=== PATIENT | female | born 1965 ===

== ENCOUNTER 2018-03-18 08:36 | Outpatient (CLI) | payer MEDICAID | END 2018-03-18 08:37 | disposition home or self-care (01) | LOC: C.MAMMO 08:37 ==

== ENCOUNTER 2018-06-04 20:55 | Emergency (ER) | payer MEDICAID ==
[2018-06-04 20:55] VITALS: BMI 35.2
[2018-06-04 22:24] LABS: BASO # 0.1 K/uL (0.0-0.2); BASO % 0.7 % (0.0-2.0); EOS % 0.5 % (0.0-4.0); HEMOGLOBIN 14.6 g/dL (11.0-16.0); LYMPH # 2.9 K/uL (1.0-4.3); LYMPH % 26.4 % (20.0-40.0); MEAN CELL VOLUME 88.7 fL (81.0-99.0); MEAN CORPUSCULAR HGB CONC 33.8 g/dL (33.0-37.0); MEAN PLATELET VOLUME 9.6 fL (7.2-11.7); MONO # 0.9 K/uL (0.0-0.8); MONO % 8.4 % (0.0-10.0); NEUT # 6.9 K/uL (1.8-7.0); RBC 4.87 Mil/uL (3.80-5.20); RED CELL DISTRIBUTION WIDTH 13.5 % (11.5-14.5); WHITE BLOOD COUNT 10.8 K/uL (4.8-10.8)
--- NOTE | 2018-06-04 22:30 | C.PDOC ---
History Of Present Illness 52 yr old F w/ pmhx anxiety, arthritis, HTN, CKD p/w abdominal pain, headache and nausea/ vomiting. 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 No sudden onset headache or neck pain or fever. No fall or trauma. x1 vomiting episode yesterday, non bloody non dark. No neck stiffness or rashes. No abdominal trauma. Pt notes abdominal pain after vomiting but also noted RLQ abdominal pain. No back pain or chest pain. Pt did not take any medicine for the pain. Pt also notes dizziness described as room spinning when she moves her head. Not constant. Able to walk without issue otherwise. No constipation or diarrhea. No dark or bloody stool. No other complaints. Chief Complaint (Nursing): Abdominal Pain Past Medical History Vital Signs: Last Vital Signs Temp 99.2 F 06/04/18 21:47 Pulse 120 H 06/04/18 21:47 Resp 24 06/04/18 21:47 BP 137/86 06/04/18 21:47 Pulse Ox 100 06/04/18 21:47 - Medical History PMH: Anxiety, Arthritis, Back Problems, HTN, Chronic Kidney Disease, Chronic Pain Surgical History: Cholecystectomy - [facility] Procedures RETROGRADE PYELOGRAM (10/13/12) Family History: States: Unknown Family Hx - Social History Hx Tobacco Use: No Hx Alcohol Use: No Hx Substance Use: No - Immunization History Hx Tetanus Toxoid Vaccination: No Hx Influenza Vaccination: No Hx Pneumococcal Vaccination: No Review Of Systems Constitutional: Negative for: Fever, Chills, Sweats, Weakness, Malaise, Weight loss Eyes: Negative for: Pain, Vision Change, Conjunctivae Inflammation, Eyelid Inflammation, Redness, Other ENT: Negative for: Ear Pain, Ear Discharge, Nose Pain, Nose Discharge, Nose Congestion, Mouth Pain, Mouth Swelling, Throat Swelling Cardiovascular: Negative for: Chest Pain, Palpitations, Edema, Light Headedness Respiratory: Negative for: Cough, Shortness of Breath, SOB with Excertion, Pleuritic Pain, Wheezing Gastrointestinal: Positive for: Nausea, Vomiting, Abdominal Pain. Negative for: Diarrhea, Constipation, Melena, Hematochezia, Hematemesis Genitourinary: Negative for: Dysuria, Frequency, Incontinence, Hematuria, Vaginal Discharge, Vaginal Bleeding Musculoskeletal: Negative for: Neck Pain, Shoulder Pain, Back Pain, Hand Pain Skin: Negative for: Rash, Lesions Neurological: Positive for: Headache, Dizziness. Negative for: Weakness, Numbness, Incoordination, Change in Speech, Confusion, Seizures, Altered Mental Status Psych: Negative for: Anxiety, Depression, Suicidal ideation Physical Exam - Physical Exam Appears: Well, Non-toxic, No Acute Distress Skin: Normal Color, Warm Head: Atraumatic, Normacephalic, No Tenderness, No Swelling, No Abrasion, No Laceration Eye(s): bilateral: Normal Inspection, PERRL, EOMI Ear(s): Bilateral: Normal Nose: Normal, No Flaring, No Discharge Oral Mucosa: Moist Tongue: Normal Appearing Lips: Normal Appearing Teeth: Normal Dentition Gingiva: Normal Appearing Throat: Normal, No Erythema, No Exudate Neck: Normal, Normal ROM, No Midline Cervical Tenderness, No Paracervical Tenderness, Supple, Other (no meningeal signs) Lymphatic: Normal Exam, No Adenopathy Chest: Symmetrical, No Deformity, No Tenderness Cardiovascular: Rhythm Regular, No Edema, No Friction Rub, No Murmur, No JVD Respiratory: Normal Breath Sounds, No Decreased Breath Sounds, No Rales, No Rhonchi Gastrointestinal/Abdominal: Normal Exam, Soft, No Tenderness, No Organomegaly, No Mass, No Distention, No Guarding Back: Normal Inspection, No CVA Tenderness, No Vertebral Tenderness Extremity: Normal ROM, No Tenderness, No Swelling Neurological/Psych: Oriented x3, Normal Speech, Normal Cognition, Normal Cranial Nerves, No Cerebellar Signs, Normal Motor, Normal Sensation Gait: Steady Extremity: Right: No Drift, Left: No Drift ED Course And Treatment - Laboratory Results Result Diagrams: 06/04/18 22:18 06/05/18 00:46 O2 Sat by Pulse Oximetry: 100 Medical Decision Making Medical Decision Makin yr old F p/w headache, dizziness described as vertigo. MURILLO is not worst of life or sudden in onset. No FND. No fall or trauma. Normal neuro exam. No cerebellar signs. EKG 88, NSR, No stemi 1505 labs, imaging largely unremarkable pt notes MURILLO improved, now fully resolved No FND No cerebellar signs clear for d/c home with return indications and followup. Endorsed pt to followup w/ Neuro, PMD and GI doc. Pt is agreeable. Disposition - Disposition Referrals: Darrion Marmolejo MD [Staff Provider] - Antonio Finn MD [Staff Provider] - [facility] [Outside] [facility] [Outside] [facility] [Outside] Disposition: HOME/ ROUTINE Disposition Time: 02:50 Condition: STABLE Additional Instructions: MAURILIO KWON, thank you for letting us take care of you today. Your provider was Merlin Soria and you were treated for VOMITING/HEADACHE/DIZZINESS. The emergency medical care you received today was directed at your acute symptoms. If you were prescribed any medication, please fill it and take as directed. It may take several days for your symptoms to resolve. Return to the Emergency Department if your symptoms worsen, do not improve, or if you have any other problems. Please contact your doctor or call one of the physicians/clinics you have been referred to that are listed on the Patient Visit Information form that is included in your discharge packet. Bring any paperwork you were given at discharge with you along with any medications you are taking to your follow up visit. Our treatment cannot replace ongoing medical care by a primary care provider outside of the emergency department. Thank you for allowing the [facility] team to be part of your care today. If you had an X-Ray or CT scan: A Radiologist will review the ED reading if any change in treatment is needed we will contact you. If you had a blood, urine, or wound culture: It will take several days for the results, if any change in treatment is needed we will contact you. If you had an STI test: It will take 48 hours for the results. Please call after 1 week if you have not heard back. Prescriptions: Meclizine [Antivert] 12.5 mg PO Q12H PRN 3 Days #6 tab PRN Reason: Dizziness Instructions: Vertigo (a Type of Dizziness) (DC), Acute Abdomen (Belly Pain), Adult (DC) Forms: [facility] (Turkmen) - Clinical Impression Clinical Impression: BPV (benign positional vertigo), Abdominal pain, Abdominal pain
[2018-06-04] MEDS ORDERED: Sodium Chloride 0.9% 1,000 ML IV SCH (22:45)
[2018-06-05] MEDS ORDERED: Iodixanol 320 MG/ML 100 ML BOTTLE IV ONE (00:03)
[2018-06-05 01:06] LABS: ALB/GLOB RATIO 1.2 (1.0-2.1); ALBUMIN 4.4 g/dL (3.5-5.0); BLOOD UREA NITROGEN 13 mg/dL (7-17); CALCIUM 9.3 mg/dl (8.6-10.4); GFR NON-AFRICAN AMERICAN > 60; LIPASE 66 U/L (23-300)
[2018-06-05 01:09] VITALS: RESP 16
[2018-06-05 01:19] LABS: SQUAMOUS EPITHIAL 1 /hpf (0-5); URINE BILIRUBIN NEGATIVE (NEGATIVE); URINE BLOOD NEGATIVE (NEGATIVE); URINE CLARITY Hazy (Clear); URINE COLOR Yellow (YELLOW); URINE GLUCOSE (UA) NORMAL (Normal); URINE LEUKOCYTE ESTERASE NEG Leu/uL (Negative); URINE PROTEIN NEGATIVE (NEGATIVE)
[2018-06-05 01:52] LABS: ALT/SGPT < 6 U/L (9-52); AST/SGOT 37 U/L (14-36)
[2018-06-05 03:16] VITALS: BP 135/90; PULSE 90; TEMP 98.8; O2SAT 97
--- NOTE | 2018-06-05 08:25 | CT ---
Date of service: 06/05/2018 PROCEDURE: CT HEAD WITHOUT CONTRAST. HISTORY: Headache and dizziness COMPARISON: None available. TECHNIQUE: Axial computed tomography images were obtained through the head/brain without intravenous contrast. Radiation dose: Total exam DLP = 1132.08 mGy-cm. This CT exam was performed using one or more of the following dose reduction techniques: Automated exposure control, adjustment of the mA and/or kV according to patient size, and/or use of iterative reconstruction technique. FINDINGS: HEMORRHAGE: No intracranial hemorrhage. BRAIN: Velasco-white matter differentiation is preserved. There is no mass, mass effect or abnormal extra-axial fluid collection. There is no territorial infarction. The midline sagittal structures are normal. VENTRICLES: The ventricles are normal in size, shape and configuration. CALVARIUM: There is no calvarial fracture or extracranial soft tissue swelling. PARANASAL SINUSES: Predominantly clear. MASTOID AIR CELLS: Predominantly clear. OTHER FINDINGS: None. IMPRESSION: No acute intracranial abnormality. A preliminary report was provided by [facility].
--- NOTE | 2018-06-05 09:43 | CT ---
Date of service: 06/05/2018 PROCEDURE: CT Abdomen and Pelvis with contrast HISTORY: abd pain, rlq COMPARISON: Comparison is made to the previous study dated 06/13/2013 TECHNIQUE: Contrast dose: 100 mL of Visipaque 320 intravenously. Axial and reformatted coronal and sagittal CT images of the abdomen and pelvis were obtained after IV contrast administration Radiation dose: Total exam DLP = 796.57 mGy-cm. This CT exam was performed using one or more of the following dose reduction techniques: Automated exposure control, adjustment of the mA and/or kV according to patient size, and/or use of iterative reconstruction technique. FINDINGS: LOWER THORAX: No evidence of acute pathology at the lung bases. LIVER: Mild hepatomegaly and moderate hepatic steatosis are again noted. GALLBLADDER AND BILE DUCTS: Status post cholecystectomy PANCREAS: Unremarkable. No gross lesion or ductal dilatation. SPLEEN: Unremarkable. ADRENALS: Unremarkable. No mass. KIDNEYS AND URETERS: Unremarkable. No hydronephrosis. No solid mass. VASCULATURE: Unremarkable. No aortic aneurysm. No aortic atherosclerotic calcification or mural plaque present. BOWEL: There [id number] gastric wall thickening. Correlate clinically for gastritis. No evidence of high-grade bowel obstruction. APPENDIX: The appendix is not visualized PERITONEUM: Unremarkable. No free fluid. No free air. LYMPH NODES: Unremarkable. No enlarged lymph nodes. BLADDER: Unremarkable. REPRODUCTIVE: Unremarkable. BONES: No acute fracture. OTHER FINDINGS: None. IMPRESSION: The appendix is not visualized. No evidence of appendicitis or pancreatitis. Suspicious for gastric wall thickening. Please correlate clinically for gastritis. Preliminary report was submitted by [facility] Radiology contains concordant findings.
--- NOTE | 2018-06-05 11:03 | CARD ---
APPROVED REPORT Date of service: 06/04/2018 EKG Measurement Heart [id number] <Conclusion> Normal sinus rhythm Normal ECG
== END 2018-06-05 03:17 | disposition home or self-care (01) ==
LOC: C.ER 20:55
DX: R10.31 Right lower quadrant pain (principal); H81.10 Benign paroxysmal vertigo, unspecified ear; I12.9 Hypertensive chronic kidney disease with stage 1 through stage 4 chronic kidney disease, or unspecified chronic kidney disease; N18.9 Chronic kidney disease, unspecified; M19.90 Unspecified osteoarthritis, unspecified site
CPT/HCPCS: 70450; 74177; 80053; 81001; 83690; 83735; 84100; 85025; 93005; 96374; 99284; J2405; J7030; Q9967

== ENCOUNTER 2018-07-17 11:21 | Observation (INO) | payer MEDICAID ==
[2018-07-17 11:21] VITALS: BMI 35.2
[2018-07-17] MEDS ORDERED: Sodium Chloride 0.9% 1,000 ML IV ONE (12:15)
--- NOTE | 2018-07-17 12:35 | RAD ---
Date of service: 07/17/2018 PROCEDURE: CHEST RADIOGRAPH, 1 VIEW HISTORY: chest pain COMPARISON: 12/10/2013 FINDINGS: LUNGS: The lungs are well inflated and clear. PLEURA: No pneumothorax or pleural effusion. CARDIOVASCULAR: The heart is normal in size. No aortic atherosclerotic calcifications present. OSSEOUS STRUCTURES: Within normal limits for the patient's age. VISUALIZED UPPER ABDOMEN: Normal. OTHER FINDINGS: None. IMPRESSION: No active pulmonary disease.
[2018-07-17 12:44] LABS: BASO % 0.6 % (0.0-2.0); EOS % 0.5 % (0.0-4.0); HEMOGLOBIN 14.8 g/dL (11.0-16.0); LYMPH # 1.8 K/uL (1.0-4.3); LYMPH % 25.4 % (20.0-40.0); MEAN CELL VOLUME 88.8 fL (81.0-99.0); MEAN CORPUSCULAR HEMOGLOBIN 30.8 pg (27.0-31.0); MEAN CORPUSCULAR HGB CONC 34.7 g/dL (33.0-37.0); MEAN PLATELET VOLUME 9.6 fL (7.2-11.7); MONO # 0.5 K/uL (0.0-0.8); MONO % 6.8 % (0.0-10.0); NEUT # 4.9 K/uL (1.8-7.0); NEUT % 66.7 % (50.0-75.0); NRBC % 0.1 % (0.0-2.0); RBC 4.8 Mil/uL (3.80-5.20); RED CELL DISTRIBUTION WIDTH 12.8 % (11.5-14.5); WHITE BLOOD COUNT 7.3 K/uL (4.8-10.8)
[2018-07-17 12:56] LABS: ALB/GLOB RATIO 1.1 (1.0-2.1); ALBUMIN 4.8 g/dL (3.5-5.0); ALT/SGPT 19 U/L (9-52); AST/SGOT 30 U/L (14-36); BLOOD UREA NITROGEN 15 mg/dL (7-17); CALCIUM 10.1 mg/dl (8.6-10.4); GFR NON-AFRICAN AMERICAN > 60
[2018-07-17 12:57] LABS: INR 1.2; PARTIAL THROMBOPLASTIN TIME 30.7 SECONDS (21-34); PROTHROMBIN TIME 12.9 SECONDS (9.7-12.2)
--- NOTE | 2018-07-17 13:01 | C.PDOC ---
History Of Present Illness 52 y/o female, with history of anxiety, arthritis, and gastritis, comes in to ED complaining of feeling dizzy and vomited for 3 days. Patient feels she cant elaborate any of her symptoms. Just feels lightheaded. Time Seen by Provider: 07/17/18 12:03 Chief Complaint (Nursing): GI Problem History Per: Patient History/Exam Limitations: no limitations Onset/Duration Of Symptoms: Days Current Symptoms Are (Timing): Still Present Past Medical History Reviewed: Historical Data, Nursing Documentation, Vital Signs Vital Signs: Last Vital Signs Temp 98.9 F 07/17/18 11:24 Pulse 98 H 07/17/18 11:24 Resp 18 07/17/18 11:24 BP 132/83 07/17/18 11:24 Pulse Ox 98 07/17/18 11:24 Primary Care Provider: Mal Velarde - Medical History PMH: Anxiety, Arthritis, Back Problems, Chronic Kidney Disease, Chronic Pain Denies: HTN (pt denies) Surgical History: Cholecystectomy - [facility] Procedures RETROGRADE PYELOGRAM (10/13/12) Family History: States: No Known Family Hx - Social History Hx Tobacco Use: No Hx Alcohol Use: No Hx Substance Use: No - Immunization History Hx Tetanus Toxoid Vaccination: No Hx Influenza Vaccination: No Hx Pneumococcal Vaccination: No Review Of Systems Except As Marked, All Systems Reviewed And Found Negative. Cardiovascular: Positive for: Light Headedness. Negative for: Chest Pain, Palpitations Respiratory: Negative for: Shortness of Breath Gastrointestinal: Positive for: Vomiting. Negative for: Nausea, Abdominal Pain, Diarrhea Neurological: Positive for: Dizziness Physical Exam - Physical Exam Appears: Non-toxic, No Acute Distress, Other (anxious) Skin: Warm, Dry Head: Normacephalic Eye(s): bilateral: Normal Inspection Oral Mucosa: Moist Neck: Supple Cardiovascular: Rhythm Regular (tachycardic), No Murmur Respiratory: Normal Breath Sounds, No Rales, No Rhonchi, No Wheezing Gastrointestinal/Abdominal: Soft, No Tenderness Extremity: Bilateral: Atraumatic, Normal ROM Neurological/Psych: Oriented x3, Normal Speech ED Course And Treatment - Laboratory Results Result Diagrams: 07/17/18 12:40 07/17/18 12:40 Lab Results: PT 12.9 SECONDS (9.7-12.2) H 07/17/18 12:40 INR 1.2 07/17/18 12:40 APTT 30.7 SECONDS (21-34) 07/17/18 12:40 Total Bilirubin 0.8 mg/dL (0.2-1.3) 07/17/18 12:40 AST 30 U/L (14-36) 07/17/18 12:40 ALT 19 U/L (9-52) 07/17/18 12:40 Alkaline Phosphatase 103 U/L (38-126) 07/17/18 12:40 Total Protein 9.3 g/dL (6.3-8.3) H 07/17/18 12:40 Albumin 4.8 g/dL (3.5-5.0) 07/17/18 12:40 Globulin 4.5 gm/dL (2.2-3.9) H 07/17/18 12:40 Albumin/Globulin Ratio 1.1 (1.0-2.1) 07/17/18 12:40 O2 Sat by Pulse Oximetry: 98 (RA) Pulse Ox Interpretation: Normal - Other Rad CXR X-Ray: Read By Radiologist Interpretation: FINDINGS: LUNGS: The lungs are well inflated and clear. PLEURA: No pneumothorax or pleural effusion. CARDIOVASCULAR: The heart is normal in size. No aortic atherosclerotic calcifications present. OSSEOUS STRUCTURES: Within normal limits for the patient's age. VISUALIZED UPPER ABDO MEN: Normal. OTHER FINDINGS: None. IMPRESSION: No active pulmonary disease. - CT Scan/US Head CT Other Rad Studies (CT/US): Read By Radiologist, Radiology Report Reviewed CT/US Interpretation: IMPRESSION: No evidence of acute intracranial hemorrhage intracranial collection mass effect or midline shift. No significant interval changes noted since the previous exam. NIHSS Stroke Scale - Date/Time Evaluation Performed Time Performed: 21:23 - How Severe is the Stoke Level of Consciousness: 0=Alert LOC to Questions: 0=Both comments correct LOC to commands: 0=Obeys both correctly Best Gaze: 0=Normal Visual: 0=No visual loss Facial: 0=Normal Motor Arm - Left: 0=No drift Motor Arm - Right: 0=No drift Motor Leg - Left: 0=No drift Motor Leg - Right: 0=No drift Limb Ataxia: 0=Absent Sensory: 0=Normal Best Language: 0=No aphasia Dysarthia: 0=Normal articulation Extinction & Inattention (Neglect): 0=Normal, no object Score: 0 rTPA Inclusion/Exclusion - Refusal of Treatment Patient Refused Treatment: No - Inclusion Criteria for Altepase All of the below criteria for inclusion were reviewed: Yes Patient is 18 years or Older: Yes Clinical DX Ischemic Stroke Cause Neurological Deficit: Yes Time of Onset Established Less Than 270 Mins Before TX Begin: Yes Risk/Benefit Discussed With Patient/Family Member Present: Yes Medical Decision Making Medical Decision Making: dizziness ?vertigo ro other infectious emtabolic etiology Plan: --Head CT --EKG --Labs --UA --Antivert 50 mg PO --IV fluids 1L --Zofran 4 mg IVP labs neg. symtpsom peristent will obs. asa given. Disposition - Disposition Disposition: HOSPITALIZED Disposition Time: 21:00 Condition: STABLE - Clinical Impression Clinical Impression: Dizziness - Scribe Statement The provider has reviewed the documentation as recorded by the Larissaibpartha Santana Provider Attestation: All medical record entries made by the Larissaibe were at my direction and personally dictated by me. I have reviewed the chart and agree that the record accurately reflects my personal performance of the history, physical exam, medical decision making, and the department course for this patient. I have also personally directed, reviewed, and agree with the discharge instructions and disposition. Decision To Admit - Pt Status Changed To: Hospital Disposition Of: Observation - . Bed Request Type: Telemetry Admitting Physician: Karmen Lee Patient Diagnosis: Dizziness
--- NOTE | 2018-07-17 13:28 | CT ---
Date of service: 07/17/2018 PROCEDURE: CT HEAD WITHOUT CONTRAST. HISTORY: pinzon/dizzy COMPARISON: Comparison is made to the previous study dated 06/05/2018 TECHNIQUE: Axial computed tomography images were obtained through the head/brain without intravenous contrast. Radiation dose: Total exam DLP = 978.14 mGy-cm. This CT exam was performed using one or more of the following dose reduction techniques: Automated exposure control, adjustment of the mA and/or kV according to patient size, and/or use of iterative reconstruction technique. FINDINGS: HEMORRHAGE: No intracranial hemorrhage. BRAIN: No mass effect or edema. No atrophy or chronic microvascular ischemic changes. VENTRICLES: Unremarkable. No hydrocephalus. CALVARIUM: Unremarkable. PARANASAL SINUSES: Unremarkable as visualized. No significant inflammatory changes. MASTOID AIR CELLS: Unremarkable as visualized. No inflammatory changes. OTHER FINDINGS: None. IMPRESSION: No evidence of acute intracranial hemorrhage intracranial collection mass effect or midline shift. No significant interval changes noted since the previous exam.
[2018-07-17] MEDS ORDERED: Sodium Chloride 0.9% 1,000 ML ONE (14:25)
[2018-07-17 14:45] LABS: SQUAMOUS EPITHIAL 4 /hpf (0-5); URINE BACTERIA MANY (<OCC); URINE BILIRUBIN NEGATIVE (NEGATIVE); URINE BLOOD NEGATIVE (NEGATIVE); URINE CLARITY Hazy (Clear); URINE COLOR Amber (YELLOW); URINE GLUCOSE (UA) NORMAL (Normal); URINE LEUKOCYTE ESTERASE NEG Leu/uL (Negative); URINE PROTEIN 1+ mg/dL (NEGATIVE)
--- NOTE | 2018-07-17 14:54 | CP.PCM.HP ---
<Celena Rodriguez P - Last Filed: 07/17/18 17:06> History of Present Illness - History of Present Illness History of Present Illness: H&P for Dr. Lee. CC: nausea, vomiting, Lightheaded and dizziness for 3 days HPI: 52 year old female with PMHx of rheumatoid arthritis, anxiety, gastritis presents to ED complaining of sudden onset of nausea and vomiting that began 2 days ago. Patient also reports lightheadedness that began on the same day. She states when it came on she had tunnel vision and she had to hold onto the wall and guide herself to a chair. Symptoms have been worsening since onset. She is unable to tolerate water and has not been able to take her medications. Vomitus is yellow, non-bloody. She has upper abdominal pain and frontal headache that comes on with the vomiting. This morning she awoke with room spinning sensation and feeling like room is swaying back and forth, which worsens with head movement. She also mentions fullness to L ear, decreased hearing and ringing in the L ear. She had these same symptoms one month ago. She came to the ED and at that time had a head CT which was negative and abominal CT which showed gastric wall thickening. She was discharged with script for antivert and referrals to neuro and GI. Patient states neuro did not accept her insurance and she missed her GI appointment this week due to severity of symptoms. Reports some dysuria earlier in the week that has slightly improved. Denies fever, chills, chest pain, numbness, tingling, syncope, slurred speech, facial droop, confusion, focal weakness, shortness of breath cough and any other symptoms. PMHx: rheumatoid arthritis, anxiety, gastritis PSHx: Cholecystectomy Meds: Enbril 60mg injection Qwk, flexeril 10mg Qhs, duloxetine DR 60mg QD, omeprazole 20mg QD, voltaran gel BID Allergies: NKDA FamHx: brother-DM SocHx: Denies tobacco, alcohol, drugs. Lives with and 2 daughters. PMD: Dr. Mal Velarde, Rheum: Dr. Daniel Quintana Present on Admission - Present on Admission Any Indicators Present on Admission: No Review of Systems - Hematologic/Lymphatic Additional comments: Review of Systems: -Gen: No fever, No chills, No headache, No lethargy, No weakness. -HEENT: + dizziness, No change in vision, + change in hearing, No sore throat, No dysphagia, No nasal congestion, No mucous. -Cardio: No chest pain, No palpitations, No lower extremity edema, No orthopnea. -Resp: No cough, No dyspnea, No hemoptysis, No wheezing, No pain on inspiration. -GI: + abdominal pain, + nausea/vomiting, No diarrhea/constipation, No hematochezia, No hematemesis. -: +dysuria, No urinary freq, No incontinence, No hematuria, No change in urinary stream. -MSK: No back pain, No muscle weakness, No radiating pain. -Skin: No itching, No rash, No lesions. -Neuro: No confusion, No numbness, No tingling, No focal weakness, No radicular pain, No syncope. -Psych: No anxiety, No depression, No H/I, No S/I, No hallucinations. Past Patient History - Infectious Disease Hx of Infectious Diseases: None - Past Medical History & Family History Past Medical History?: Yes - Past Social History Smoking Status: Never Smoked - CARDIAC Hx Hypertension: No (pt denies) - PULMONARY Hx Respiratory Disorders: No - NEUROLOGICAL Hx Neurological Disorder: No - HEENT Hx HEENT Problems: No - RENAL Hx Chronic Kidney Disease: Yes - ENDOCRINE/METABOLIC Hx Endocrine Disorders: No - HEMATOLOGICAL/ONCOLOGICAL Hx Blood Disorders: No - INTEGUMENTARY Hx Dermatological Problems: No - MUSCULOSKELETAL/RHEUMATOLOGICAL Hx Arthritis: Yes - GASTROINTESTINAL Hx Gastrointestinal Disorders: No - GENITOURINARY/GYNECOLOGICAL Hx Genitourinary Disorders: No - PSYCHIATRIC Hx Anxiety: Yes Hx Substance Use: No - SURGICAL HISTORY Hx Cholecystectomy: Yes - ANESTHESIA Hx Anesthesia: Yes Hx Anesthesia Reactions: Yes (anxiety) Hx Malignant Hyperthermia: No Meds Allergies/Adverse Reactions: Allergies Allergy/AdvReac Type Severity Reaction Status Date / Time No Known Allergies Allergy Verified 07/17/18 11:29 Physical Exam - Constitutional Appears: Non-toxic, No Acute Distress - Head Exam Head Exam: ATRAUMATIC, NORMOCEPHALIC - Eye Exam Eye Exam: EOMI, Normal appearance, PERRL. absent: Nystagmus - ENT Exam ENT Exam: Normal Exam Additional comments: TM normal on the R, TM obscurred by wax on the L - Neck Exam Neck exam: Positive for: Full Rom, Normal Inspection - Respiratory Exam Respiratory Exam: Clear to Auscultation Bilateral, NORMAL BREATHING PATTERN. absent: Decreased Breath Sounds, Rales, Rhonchi, Wheezes - Cardiovascular Exam Cardiovascular Exam: REGULAR RHYTHM, +S1, +S2. absent: Systolic Murmur - GI/Abdominal Exam GI & Abdominal Exam: Normal Bowel Sounds, Soft. absent: Distended, Firm, Guarding, Rebound, Rigid, Tenderness - Extremities Exam Extremities exam: Positive for: full ROM, normal capillary refill, pedal pulses present. Negative for: joint swelling, pedal edema, tenderness Additional comments: slight bruise L newell - Neurological Exam Neurological exam: Alert, CN II-XII Intact, Oriented x3 Additional comments: Finger to nose intact. Heel to newell intact. 5/5 muscle strength all extremities. Negative protator drift. No nystagmus. Kim Duncan pike negative. Slightly unsteady gait - Psychiatric Exam Psychiatric exam: Normal Affect, Normal Mood - Skin Skin Exam: Dry, Normal Color, Warm Results - Vital Signs Recent Vital Signs: Last Vital Signs Temp 98.9 F 07/17/18 11:24 Pulse 98 H 07/17/18 11:24 Resp 18 07/17/18 11:24 BP 132/83 07/17/18 11:24 Pulse Ox 98 07/17/18 14:06 - Labs Result Diagrams: 07/17/18 12:40 07/17/18 12:40 Labs: Laboratory Results - last 24 hr 07/17/18 07/17/18 07/17/18 12:40 12:40 12:40 WBC 7.3 RBC 4.80 Hgb 14.8 Hct 42.6 MCV 88.8 MCH 30.8 MCHC 34.7 RDW 12.8 Plt Count 235 MPV 9.6 Neut % (Auto) 66.7 Lymph % (Auto) 25.4 [place] % (Auto) 6.8 Eos % (Auto) 0.5 Baso % (Auto) 0.6 Neut # (Auto) 4.9 Lymph # (Auto) 1.8 [place] # (Auto) 0.5 Eos # (Auto) 0.0 Baso # (Auto) 0.0 PT 12.9 H INR 1.2 APTT 30.7 Sodium 141 Potassium 3.9 Chloride 100 Carbon Dioxide 30 Anion Gap 15 BUN 15 Creatinine 0.6 L Est GFR ( Amer) > 60 Est GFR (Non-Af Amer) > 60 Random Glucose 113 H Calcium 10.1 Total Bilirubin 0.8 AST 30 ALT 19 Alkaline Phosphatase 103 Troponin I < 0.0120 Total Protein 9.3 H Albumin 4.8 Globulin 4.5 H Albumin/Globulin Ratio 1.1 Urine Color Urine Clarity Urine pH Ur Specific [place] Urine Protein Urine Glucose (UA) Urine Ketones Urine Blood Urine Nitrate Urine Bilirubin Urine Urobilinogen Ur Leukocyte Esterase Urine WBC (Auto) Urine RBC (Auto) Ur Squamous Epith Cells Urine Bacteria 07/17/18 14:32 WBC RBC Hgb Hct MCV MCH MCHC RDW Plt Count MPV Neut % (Auto) Lymph % (Auto) [place] % (Auto) Eos % (Auto) Baso % (Auto) Neut # (Auto) Lymph # (Auto) [place] # (Auto) Eos # (Auto) Baso # (Auto) PT INR APTT Sodium Potassium Chloride Carbon Dioxide Anion Gap BUN Creatinine Est GFR ( Amer) Est GFR (Non-Af Amer) Random Glucose Calcium Total Bilirubin AST ALT Alkaline Phosphatase Troponin I Total Protein Albumin Globulin Albumin/Globulin Ratio Urine Color Joya Urine Clarity Hazy Urine pH 9.0 Ur Specific [place] 1.016 Urine Protein 1+ H Urine Glucose (UA) Normal Urine Ketones 1+ H Urine Blood Negative Urine Nitrate Positive H Urine Bilirubin Negative Urine Urobilinogen 2.0 H Ur Leukocyte Esterase Neg Urine WBC (Auto) 1 Urine RBC (Auto) < 1 Ur Squamous Epith Cells 4 Urine Bacteria Many H Assessment & Plan - Assessment and Plan (Free Text) Plan: Vertigo Intractable nausea/vomiting , Acute Antivert 25mg PO TID Zofran 4mg IVP Q6H NS @120 UTI , Acute UA: +nitrates, Many bacteria f/u Urine cx Ciprofloxacin 500mg daily Rheumatoid arthritis , Chronic Follows [employer] Dr. Jaime Quintana outpatient Takes Enbril injection 60mg once weekly on Mondays Home med Fioricet 1 tab TID PRN RA pain Hx Gastritis, Chronic Protonix 20 PO daily for home med Omeprazole History of anxiety , Chronic Home med Duloxetine 60 PO dialy History of insomnia, Chronic Home med Flexeril 5mg HS PPx Heparin 5000u Q8H Patient on Protonix Liquit diet, advance as tolerated PT/OT Case discussed with Dr. Lee. Celena Rodriguez, PGY-1. <Karmen Lee - Last Filed: 07/17/18 18:40> Results - Vital Signs Recent Vital Signs: Last Vital Signs Temp 98.8 F 07/17/18 15:20 Pulse 88 07/17/18 15:20 Resp 20 07/17/18 15:20 BP 146/95 H 07/17/18 15:20 Pulse Ox 98 07/17/18 15:20 - Labs Result Diagrams: 07/17/18 12:40 07/17/18 12:40 Labs: Laboratory Results - last 24 hr 07/17/18 07/17/18 07/17/18 12:40 12:40 12:40 WBC 7.3 RBC 4.80 Hgb 14.8 Hct 42.6 MCV 88.8 MCH 30.8 MCHC 34.7 RDW 12.8 Plt Count 235 MPV 9.6 Neut % (Auto) 66.7 Lymph % (Auto) 25.4 [place] % (Auto) 6.8 Eos % (Auto) 0.5 Baso % (Auto) 0.6 Neut # (Auto) 4.9 Lymph # (Auto) 1.8 [place] # (Auto) 0.5 Eos # (Auto) 0.0 Baso # (Auto) 0.0 PT 12.9 H INR 1.2 APTT 30.7 Sodium 141 Potassium 3.9 Chloride 100 Carbon Dioxide 30 Anion Gap 15 BUN 15 Creatinine 0.6 L Est GFR ( Amer) > 60 Est GFR (Non-Af Amer) > 60 Random Glucose 113 H Calcium 10.1 Total Bilirubin 0.8 AST 30 ALT 19 Alkaline Phosphatase 103 Troponin I < 0.0120 Total Protein 9.3 H Albumin 4.8 Globulin 4.5 H Albumin/Globulin Ratio 1.1 Urine Color Urine Clarity Urine pH Ur Specific [place] Urine Protein Urine Glucose (UA) Urine Ketones Urine Blood Urine Nitrate Urine Bilirubin Urine Urobilinogen Ur Leukocyte Esterase Urine WBC (Auto) Urine RBC (Auto) Ur Squamous Epith Cells Urine Bacteria 07/17/18 14:32 WBC RBC Hgb Hct MCV MCH MCHC RDW Plt Count MPV Neut % (Auto) Lymph % (Auto) [place] % (Auto) Eos % (Auto) Baso % (Auto) Neut # (Auto) Lymph # (Auto) [place] # (Auto) Eos # (Auto) Baso # (Auto) PT INR APTT Sodium Potassium Chloride Carbon Dioxide Anion Gap BUN Creatinine Est GFR ( Amer) Est GFR (Non-Af Amer) Random Glucose Calcium Total Bilirubin AST ALT Alkaline Phosphatase Troponin I Total Protein Albumin Globulin Albumin/Globulin Ratio Urine Color Joya Urine Clarity Hazy Urine pH 9.0 Ur Specific [place] 1.016 Urine Protein 1+ H Urine Glucose (UA) Normal Urine Ketones 1+ H Urine Blood Negative Urine Nitrate Positive H Urine Bilirubin Negative Urine Urobilinogen 2.0 H Ur Leukocyte Esterase Neg Urine WBC (Auto) 1 Urine RBC (Auto) < 1 Ur Squamous Epith Cells 4 Urine Bacteria Many H Attending/Attestation - Attestation I have personally seen and examined this patient.: Yes I have fully participated in the care of the patient.: Yes I have reviewed all pertinent clinical information: Yes Notes (Text): seen and examined,complaining of nausea,vomiting,vertigo and unsteady gait Hydrate,Meclizine and zofran continue home meds If she improves we will discharge her tomorrow.Out patient ENT if vertigo persist PT evaluation
[2018-07-17 15:47] VITALS: RESP 20
[2018-07-17] MEDS ORDERED: Apap-Butalbital-Caffeine 325-50-40mg Tab PO PRN (16:59)
[2018-07-17] MEDS ORDERED: Sodium Chloride 0.9% 1,000 ML IV SCH (17:00)
[2018-07-17] MEDS: Sodium Chloride 0.9% 1,000 ML IV SCH (18:30)
[2018-07-18] MEDS: Sodium Chloride 0.9% 1,000 ML IV SCH ×2 (04:58→14:11)
[2018-07-18 07:01] LABS: BASO % 0.5 % (0.0-2.0); EOS # 0.1 K/uL (0.0-0.7); EOS % 1.1 % (0.0-4.0); HEMOGLOBIN 13.1 g/dL (11.0-16.0); LYMPH # 2.7 K/uL (1.0-4.3); LYMPH % 38.7 % (20.0-40.0); MEAN CELL VOLUME 88.9 fL (81.0-99.0); MEAN CORPUSCULAR HEMOGLOBIN 30.3 pg (27.0-31.0); MEAN CORPUSCULAR HGB CONC 34.1 g/dL (33.0-37.0); MEAN PLATELET VOLUME 9.7 fL (7.2-11.7); MONO # 0.6 K/uL (0.0-0.8); MONO % 8.7 % (0.0-10.0); NEUT # 3.6 K/uL (1.8-7.0); RBC 4.3 Mil/uL (3.80-5.20); RED CELL DISTRIBUTION WIDTH 12.3 % (11.5-14.5)
[2018-07-18 07:08] LABS: ALB/GLOB RATIO 1.1 (1.0-2.1); ALBUMIN 3.9 g/dL (3.5-5.0); ALT/SGPT 15 U/L (9-52); AST/SGOT 22 U/L (14-36); BLOOD UREA NITROGEN 13 mg/dL (7-17); CALCIUM 9.1 mg/dl (8.6-10.4); GFR NON-AFRICAN AMERICAN > 60
[2018-07-18] MEDS ORDERED: Pantoprazole 20 mg EC Tab PO SCH (10:00)
[2018-07-18] MEDS ORDERED: MethylPREDNISolone 40 mg Vial IVP ONE ×2 (11:15→12:46)
--- NOTE | 2018-07-18 15:43 | CP.PCM.DIS ---
<JenniferCelena P - Last Filed: 07/18/18 20:21> Provider - Provider Date of Admission: 07/17/18 13:55 Attending physician: Karmen Lee MD Time Spent in preparation of Discharge (in minutes): 35 Diagnosis - Discharge Diagnosis (1) Vertigo Status: Acute (2) UTI (lower urinary tract infection) Status: Acute (3) Vomiting Status: Acute Hospital Course - Lab Results Lab Results: Most Recent Lab Values WBC 7.0 K/uL (4.8-10.8) 07/18/18 06:45 RBC 4.30 Mil/uL (3.80-5.20) 07/18/18 06:45 Hgb 13.1 g/dL (11.0-16.0) 07/18/18 06:45 Hct 38.3 % (34.0-47.0) 07/18/18 06:45 MCV 88.9 fL (81.0-99.0) 07/18/18 06:45 MCH 30.3 pg (27.0-31.0) 07/18/18 06:45 MCHC 34.1 g/dL (33.0-37.0) 07/18/18 06:45 RDW 12.3 % (11.5-14.5) 07/18/18 06:45 Plt Count 188 K/uL (130-400) 07/18/18 06:45 MPV 9.7 fL (7.2-11.7) 07/18/18 06:45 Neut % (Auto) 51.0 % (50.0-75.0) 07/18/18 06:45 Lymph % (Auto) 38.7 % (20.0-40.0) 07/18/18 06:45 [place] % (Auto) 8.7 % (0.0-10.0) 07/18/18 06:45 Eos % (Auto) 1.1 % (0.0-4.0) 07/18/18 06:45 Baso % (Auto) 0.5 % (0.0-2.0) 07/18/18 06:45 Neut # (Auto) 3.6 K/uL (1.8-7.0) 07/18/18 06:45 Lymph # (Auto) 2.7 K/uL (1.0-4.3) 07/18/18 06:45 [place] # (Auto) 0.6 K/uL (0.0-0.8) 07/18/18 06:45 Eos # (Auto) 0.1 K/uL (0.0-0.7) 07/18/18 06:45 Baso # (Auto) 0.0 K/uL (0.0-0.2) 07/18/18 06:45 PT 12.9 SECONDS (9.7-12.2) H 07/17/18 12:40 INR 1.2 07/17/18 12:40 APTT 30.7 SECONDS (21-34) 07/17/18 12:40 Sodium 141 mmol/L (132-148) 07/18/18 06:45 Potassium 3.9 mmol/L (3.6-5.2) 07/18/18 06:45 Chloride 107 mmol/L (98-107) 07/18/18 06:45 Carbon Dioxide 23 mmol/L (22-30) 07/18/18 06:45 Anion Gap 15 (10-20) 07/18/18 06:45 BUN 13 mg/dL (7-17) 07/18/18 06:45 Creatinine 0.5 mg/dL (0.7-1.2) L 07/18/18 06:45 Est GFR ( Amer) > 60 07/18/18 06:45 Est GFR (Non-Af Amer) > 60 07/18/18 06:45 Random Glucose 96 mg/dL (65-105) 07/18/18 06:45 Calcium 9.1 mg/dl (8.6-10.4) 07/18/18 06:45 Total Bilirubin 0.4 mg/dL (0.2-1.3) 07/18/18 06:45 AST 22 U/L (14-36) 07/18/18 06:45 ALT 15 U/L (9-52) 07/18/18 06:45 Alkaline Phosphatase 89 U/L (38-126) 07/18/18 06:45 Troponin I < 0.0120 ng/mL (0.00-0.120) 07/17/18 12:40 Total Protein 7.4 g/dL (6.3-8.3) 07/18/18 06:45 Albumin 3.9 g/dL (3.5-5.0) 07/18/18 06:45 Globulin 3.5 gm/dL (2.2-3.9) 07/18/18 06:45 Albumin/Globulin Ratio 1.1 (1.0-2.1) 07/18/18 06:45 Urine Color Joya (YELLOW) 07/17/18 14:32 Urine Clarity Hazy (Clear) 07/17/18 14:32 Urine pH 9.0 (5.0-8.0) 07/17/18 14:32 Ur Specific [place] 1.016 (1.003-1.030) 07/17/18 14:32 Urine Protein 1+ mg/dL (NEGATIVE) H 07/17/18 14:32 Urine Glucose (UA) Normal mg/dL (Normal) 07/17/18 14:32 Urine Ketones 1+ mg/dL (NEGATIVE) H 07/17/18 14:32 Urine Blood Negative (NEGATIVE) 07/17/18 14:32 Urine Nitrate Positive (NEGATIVE) H 07/17/18 14:32 Urine Bilirubin Negative (NEGATIVE) 07/17/18 14:32 Urine Urobilinogen 2.0 mg/dL (0.2-1.0) H 07/17/18 14:32 Ur Leukocyte Esterase Neg Jagruti/uL (Negative) 07/17/18 14:32 Urine WBC (Auto) 1 /hpf (0-5) 07/17/18 14:32 Urine RBC (Auto) < 1 /hpf (0-3) 07/17/18 14:32 Ur Squamous Epith Cells 4 /hpf (0-5) 07/17/18 14:32 Urine Bacteria Many (<OCC) H 07/17/18 14:32 - Hospital Course Hospital Course: On admission: 52 year old female with PMHx of rheumatoid arthritis, anxiety, gastritis presents to ED complaining of sudden onset of nausea and vomiting that began 2 days ago. Patient also reports lightheadedness that began on the same day. She states when it came on she had tunnel vision and she had to hold onto the wall and guide herself to a chair. Symptoms have been worsening since onset. She is unable to tolerate water and has not been able to take her medications. Vomitus is yellow, non-bloody. She has upper abdominal pain and frontal headache that comes on with the vomiting. This morning she awoke with room spinning sensation and feeling like room is swaying back and forth, which worsens with head movement. She also mentions fullness to L ear, decreased hearing and ringing in the L ear. She had these same symptoms one month ago. She came to the ED and at that time had a head CT which was negative and abominal CT which showed gastric wall thickening. She was discharged with script for antivert and referrals to neuro and GI. Patient states neuro did not accept her insurance and she missed her GI appointment this week due to severity of symptoms. Reports some dysuria earlier in the week that has slightly improved. Denies fever, chills, chest pain, numbness, tingling, syncope, slurred speech, facial droop, confusion, focal weakness, shortness of breath cough and any other symptoms. Hospitalization: Patient admitted for dizziness and Intractable nausea/vomiting. CT head was negative for acute intracranial abnormality (see full report). She was treated with Antivert 25mg PO TID and Zofran 4mg IVP Q6H, which improved symptoms greatly. Patient initially unsteady on her feet, however showed improvement. PT recommended rolling walker and home PT due unsteadiness. Walker was ordered and will be delivered to patient's house. Patient given referral for home PT. On admission, patient was noted to have UTI as well. She was treated and sent home with a script for Ciprofloxacin 500mg twice daily . Discharge instructions: Patient is stable for discharge as per Dr. Pretty. You must follow up with your primary care doctor within one week of discharge. Patient will be sent home with the following medication: Antivert 25mg every 8 hours as needed for dizziness Ciprofloxicin 500mg twice a day for 7 days You may resume your home medicine as usual. Rolling walker has been ordered. It will be delivered to your house. Please have family members help you walk until walker arrives home. You may buy Tylenol over the counter. You may buy Dubrox ear drops over the counter to help clear your L ear of wax- only do this after your dizziness and vomiting have resolved, or it may worsen your dizziness and vomiting. Return to the emergency room for new or worsening symptoms. Discharge Exam - Head Exam Head Exam: ATRAUMATIC, NORMOCEPHALIC - Additional Findings Additional findings: - Constitutional Appears: Non-toxic, No Acute Distress - Head Exam Head Exam: ATRAUMATIC, NORMOCEPHALIC - Eye Exam Eye Exam: EOMI, Normal appearance, PERRL. absent: Nystagmus - ENT Exam ENT Exam: Normal Exam Additional comments: TM normal on the R, TM obscured by wax on the L - Neck Exam Neck exam: Positive for: Full Rom, Normal Inspection - Respiratory Exam Respiratory Exam: Clear to Auscultation Bilateral, NORMAL BREATHING PATTERN. absent: Decreased Breath Sounds, Rales, Rhonchi, Wheezes - Cardiovascular Exam Cardiovascular Exam: REGULAR RHYTHM, +S1, +S2. absent: Systolic Murmur - GI/Abdominal Exam GI & Abdominal Exam: Normal Bowel Sounds, Soft. absent: Distended, Firm, Guarding, Rebound, Rigid, Tenderness - Extremities Exam Extremities exam: Positive for: full ROM, normal capillary refill, pedal pulses present. Negative for: joint swelling, pedal edema, tenderness Additional comments: slight bruise L newell - Neurological Exam Neurological exam: Alert, CN II-XII Intact, Oriented x3 Additional comments: Finger to nose intact. Heel to newell intact. 5/5 muscle strength all extremities. Negative pronator drift. No nystagmus. Kim Duncan pike negative. Slightly unsteady gait - Psychiatric Exam Psychiatric exam: Normal Affect, Normal Mood - Skin Skin Exam: Dry, Normal Color, Warm Discharge Plan - Discharge Medications Prescriptions: Ciprofloxacin [Cipro] 500 mg PO BID #13 tab Meclizine [Meclizine*] 25 mg PO TID PRN #42 tab PRN Reason: Nausea/Vomiting - Follow Up Plan Condition: STABLE Disposition: HOME/ ROUTINE Instructions: Vertigo (a Type of Dizziness) (DC), Meclizine, Acute Abdominal Pain (DC), Acute Abdominal Pain (GEN) Additional Instructions: Patient is stable for discharge as per Dr. Pretty. You must follow up with your primary care doctor within one week of discharge. Patient will be sent home with the following medication: Antivert 25mg every 8 hours as needed for dizziness Ciprofloxicin 500mg twice a day for 7 days You may resume your home medicine as usual. Rolling walker has been ordered. It will be delivered to your house. Please have family members help you walk until walker arrives home. You may buy Tylenol over the counter. You may buy Dubrox ear drops over the counter to help clear your L ear of wax- only do this after your dizziness and vomiting have resolved, or it may worsen your dizziness and vomiting. Return to the emergency room for new or worsening symptoms. El paciente est estable para el sudha segn el Dr. Pretty. Debe hacer un seguimiento con voss doctor de cabezera dentro de jeffy semana despus del sudha. El paciente recebira las siguiente receta: Antivert 25 mg cada 8 horas segn sea necesario para el mareo Ciprofloxicin 500mg dos vez al vonda por 7 etienne Usted puede comprar Tylenol en el mostrador. Puede comprar gotas para los odos Dubrox de venta jayy para ayudar a limpiar voss oreja L de cera; solo romulo esto despus de que se hayan resuelto los mareos y vmitos, o puede empeorar indira mareos y vmitos. Regrese a la juliane de emergencias para los sntomas nuevos o que empeoran. <Toro Pretty H - Last Filed: 07/19/18 07:36> Provider - Provider Date of Admission: 07/17/18 13:55 Attending physician: Karmen Lee MD Hospital Course - Lab Results Lab Results: Most Recent Lab Values WBC 7.0 K/uL (4.8-10.8) 07/18/18 06:45 RBC 4.30 Mil/uL (3.80-5.20) 07/18/18 06:45 Hgb 13.1 g/dL (11.0-16.0) 07/18/18 06:45 Hct 38.3 % (34.0-47.0) 07/18/18 06:45 MCV 88.9 fL (81.0-99.0) 07/18/18 06:45 MCH 30.3 pg (27.0-31.0) 07/18/18 06:45 MCHC 34.1 g/dL (33.0-37.0) 07/18/18 06:45 RDW 12.3 % (11.5-14.5) 07/18/18 06:45 Plt Count 188 K/uL (130-400) 07/18/18 06:45 MPV 9.7 fL (7.2-11.7) 07/18/18 06:45 Neut % (Auto) 51.0 % (50.0-75.0) 07/18/18 06:45 Lymph % (Auto) 38.7 % (20.0-40.0) 07/18/18 06:45 [place] % (Auto) 8.7 % (0.0-10.0) 07/18/18 06:45 Eos % (Auto) 1.1 % (0.0-4.0) 07/18/18 06:45 Baso % (Auto) 0.5 % (0.0-2.0) 07/18/18 06:45 Neut # (Auto) 3.6 K/uL (1.8-7.0) 07/18/18 06:45 Lymph # (Auto) 2.7 K/uL (1.0-4.3) 07/18/18 06:45 [place] # (Auto) 0.6 K/uL (0.0-0.8) 07/18/18 06:45 Eos # (Auto) 0.1 K/uL (0.0-0.7) 07/18/18 06:45 Baso # (Auto) 0.0 K/uL (0.0-0.2) 07/18/18 06:45 PT 12.9 SECONDS (9.7-12.2) H 07/17/18 12:40 INR 1.2 07/17/18 12:40 APTT 30.7 SECONDS (21-34) 07/17/18 12:40 Sodium 141 mmol/L (132-148) 07/18/18 06:45 Potassium 3.9 mmol/L (3.6-5.2) 07/18/18 06:45 Chloride 107 mmol/L (98-107) 07/18/18 06:45 Carbon Dioxide 23 mmol/L (22-30) 07/18/18 06:45 Anion Gap 15 (10-20) 07/18/18 06:45 BUN 13 mg/dL (7-17) 07/18/18 06:45 Creatinine 0.5 mg/dL (0.7-1.2) L 07/18/18 06:45 Est GFR ( Amer) > 60 07/18/18 06:45 Est GFR (Non-Af Amer) > 60 07/18/18 06:45 Random Glucose 96 mg/dL (65-105) 07/18/18 06:45 Calcium 9.1 mg/dl (8.6-10.4) 07/18/18 06:45 Total Bilirubin 0.4 mg/dL (0.2-1.3) 07/18/18 06:45 AST 22 U/L (14-36) 07/18/18 06:45 ALT 15 U/L (9-52) 07/18/18 06:45 Alkaline Phosphatase 89 U/L (38-126) 07/18/18 06:45 Troponin I < 0.0120 ng/mL (0.00-0.120) 07/17/18 12:40 Total Protein 7.4 g/dL (6.3-8.3) 07/18/18 06:45 Albumin 3.9 g/dL (3.5-5.0) 07/18/18 06:45 Globulin 3.5 gm/dL (2.2-3.9) 07/18/18 06:45 Albumin/Globulin Ratio 1.1 (1.0-2.1) 07/18/18 06:45 Urine Color Joya (YELLOW) 07/17/18 14:32 Urine Clarity Hazy (Clear) 07/17/18 14:32 Urine pH 9.0 (5.0-8.0) 07/17/18 14:32 Ur Specific [place] 1.016 (1.003-1.030) 07/17/18 14:32 Urine Protein 1+ mg/dL (NEGATIVE) H 07/17/18 14:32 Urine Glucose (UA) Normal mg/dL (Normal) 07/17/18 14:32 Urine Ketones 1+ mg/dL (NEGATIVE) H 07/17/18 14:32 Urine Blood Negative (NEGATIVE) 07/17/18 14:32 Urine Nitrate Positive (NEGATIVE) H 07/17/18 14:32 Urine Bilirubin Negative (NEGATIVE) 07/17/18 14:32 Urine Urobilinogen 2.0 mg/dL (0.2-1.0) H 07/17/18 14:32 Ur Leukocyte Esterase Neg Jagruti/uL (Negative) 07/17/18 14:32 Urine WBC (Auto) 1 /hpf (0-5) 07/17/18 14:32 Urine RBC (Auto) < 1 /hpf (0-3) 07/17/18 14:32 Ur Squamous Epith Cells 4 /hpf (0-5) 07/17/18 14:32 Urine Bacteria Many (<OCC) H 07/17/18 14:32 Attending/Attestation - Attestation I have personally seen and examined this patient.: Yes I have fully participated in the care of the patient.: Yes I have reviewed all pertinent clinical information, including history, physical exam and plan: Yes Notes (Text): 07/19/18 07:33 Medical attending: Patient was seen and examined by me with the medical clinic manager. Agree with the above note by the resident. The patient was not in any acute distress when I came and saw the patient. We reviewed the lab work as well and discussed with the patient as well She will have an RX for Cipro and we advised her to use Ear removal liquid such as debrox or to see an ENT outpatient as well. Toro Pretty
[2018-07-18 16:33] VITALS: BP 153/84; PULSE 90; TEMP 98.2; O2SAT 98
[2018-07-19] MEDS ORDERED: Pneumococcal 23-Valent Vaccine IM ONE (10:00)
== END 2018-07-18 18:30 | disposition home or self-care (01) ==
LOC: C.ER 11:21 → C.9E 13:55 → C.6T 14:26
PROVIDERS: ADMIT Internal Medicine; ATTEND Internal Medicine
DX: R42 Dizziness and giddiness (principal); N39.0 Urinary tract infection, site not specified; R11.2 Nausea with vomiting, unspecified; M06.9 Rheumatoid arthritis, unspecified; H93.12 Tinnitus, left ear; H91.90 Unspecified hearing loss, unspecified ear; N18.9 Chronic kidney disease, unspecified; Z83.3 Family history of diabetes mellitus
CPT/HCPCS: 36415; 70450; 71045; 80053; 81001; 84484; 85025; 85610; 85730; 87086; 96360; 96374; 97116; 97162; 99282; G0378; G8978; G8979; J0696; J1644; J1885; J2405; J2920; J7030